=== PATIENT | female | born 1985 | race Caucasian/White ===

== ENCOUNTER 2016-04-13 20:09 | Emergency (ER) | payer OTHER ==
[~2016-04-13] VITALS: Ht 175.3 cm; Wt 96.5 kg
[~2016-04-13 20:09] MED LIST: AZIT250T94 PO
[2016-04-13 20:47] VITALS: Ht 175.3 cm; Wt 96.5 kg
--- NOTE | 2016-04-13 22:56 | RADRPT ---
PROCEDURE: XR Chest. CLINICAL INDICATION: Concern for foreign body. TECHNIQUE: Single frontal chest x-ray. COMPARISON: Chest radiograph 12/13/2015. FINDINGS: The cardiomediastinal silhouette is unremarkable. No pneumothorax, pleural effusion or consolidation is seen. No acute osseous abnormality is noted. No radiopaque foreign body is noted. IMPRESSION: 1. No radiopaque foreign body. 2. No acute cardiopulmonary abnormality. TECHNIQUE: An MRI of the brain was performed utilizing the following sequences: Sagittal and axial T1 weighted, axial T2 weighted, axial diffusion weighted with ADC mapping, axial SWAN, coronal GRE, sagittal and axial FLAIR. .Danielle Loving MD, MD Date Time Electronically viewed and signed by .Danielle Loving MD, on 04/13/2016 22:56 .N/
--- NOTE | 2016-04-13 22:58 | RADRPT ---
PROCEDURE: X-ray soft tissue neck CLINICAL INDICATION: Foreign body sensation. TECHNIQUE: AP and lateral x-ray of the soft tissues of the neck are available for review. COMPARISON: None available FINDINGS: The epiglottis is unremarkable. The airway is patent. No significant airway compromise is seen. No radiopaque foreign body is identified. No other abnormality is seen. The osseous structures are unre markable. IMPRESSION: 1. No radiopaque foreign body. RPTAT: HFN .Danielle Loving MD, Date Time Electronically viewed and signed by .Danielle Loving MD, on 04/13/2016 22:58 .N/
--- NOTE | 2016-04-13 23:24 | ERD ---
ER Documentation Chief Complaint Date/Time DATE: 04/13/16 TIME: 23:22 Chief Complaint Seed stuck on her throat HPI Patient is a 30-year-old female who presents to the emergency department with sensation of something being stuck in her throat. Patient states yesterday she was eating vegetables for dinner and that she is concerned that 1 of the joy seeds are stuck in her throat. Patient reports throat irritation. Patient denies any drooling, trismus or hyperextension of her neck. Patient states that she has vomited once today. She does speaking full sentences. Patient denies any throat swelling, lip swelling, chest pain or shortness of breath. Patient denies any fever, chills, nausea, vomiting, loss of consciousness. ROS All systems reviewed and are negative except as per history of present illness. Medications Home Meds Active Scripts Azithromycin* (Zithromax*) 250 Mg Tablet, 250 MG PO DAILY for 5 Days, #6 TAB Please dispense Z-merly Prov:SULEMA ROBISON PA-C 12/13/15 Allergies Allergies: Coded Allergies: No Known Allergy (Unverified , 12/13/15) PMhx/Soc Medical and Surgical Hx: pt denies Surgical Hx History of Surgery: No Anesthesia Reaction: No Hx Neurological Disorder: No Hx Respiratory Disorders: No Hx Cardiac Disorders: No Hx Psychiatric Problems: Yes (ANXIETY) Hx Miscellaneous Medical Probl: Yes (hypothyroidism) Hx Alcohol Use: No Hx Substance Use: No Hx Tobacco Use: No Smoking Status: Never smoker Physical Exam Vitals Vital Signs Date Time Temp Pulse Resp B/P Pulse Ox O2 Delivery O2 Flow Rate FiO2 04/13/16 20:47 98.3 91 18 130/73 100 Physical Exam GENERAL: Well-developed, well-nourished female. Appears in no acute distress. Speaking in full sentences HEAD: Normocephalic, atraumatic. No deformities or ecchymosis. EYE: Pupils equal, round, and reactive to light. EOMs intact. No conjunctival erythema. No eye discharge. ENT: External ear without any masses or tenderness. Auditory canals clear bilaterally. TM visualized bilaterally, non-erythematous, non-bulging. Nasal mucosa pink with no discharge. Oropharynx is pink without any tonsillar erythema or exudates. Right tonsil noted to be swollen however no uvula deviation or kissing tonsils are noted. (Patient states that this is normal finding for her.) Patient is able swallow her secretions without any difficulty. NECK: Supple. No meningismus. Normal ROM of the neck. LUNG: Clear to auscultation bilaterally. No rhonchi, wheezing, rales or coarse breath sounds. HEART: Regular rate and rhythm. No murmurs, rubs or gallops. BACK: No midline tenderness. EXTREMITES: Equal pulses bilaterally. No peripheral clubbing, cyanosis or edema. No unilateral leg swelling. NEUROLOGIC: Alert and oriented to person, place and time. Moving all four extremities. 5/5 strength in all extremities. Normal speech. Steady gait. SKIN: Normal color. Warm and dry. No rashes or lesions. Results 24 hrs Current Medications Medications (Trade) Dose Ordered Sig/Mohit Route PRN Reason Start Time Stop Time Status Last Admin Dose Admin Methylprednisolone Sodium Succinate (Solu-Medrol) 125 mg ONCE ONCE IM 04/13/16 23:30 04/13/16 23:30 DC Prednisone (Prednisone) 40 mg ONCE ONCE PO 04/13/16 23:30 04/13/16 23:30 DC Diphenhydramine HCl (Benadryl) 25 mg ONCE ONCE PO 04/13/16 23:30 04/13/16 23:30 DC Procedures/MDM ED COURSE: The patient was stable throughout ED course. I kept the patient and/or family informed of laboratory and diagnostic imaging results throughout the ED course. DIAGNOSTIC IMAGING: Read by radiologist. DIAGNOSTIC IMAGING REPORT Patient: JOSE A CUMMINGS : 1985 Age: 30 Sex: F MR #: [id number] [facility] #: [id number] DOS: 04/13/16 2214 Ordering MD: SULEMA ROBISON PA-C Location: [facility] Room/Bed: PROCEDURE: X-ray soft tissue neck CLINICAL INDICATION: Foreign body sensation. TECHNIQUE: AP and lateral x-ray of the soft tissues of the neck are available for review. COMPARISON: None available FINDINGS: The epiglottis is unremarkable. The airway is patent. No significant airway compromise is seen. No radiopaque foreign body is identified. No other abnormality is seen. The osseous structures are unremarkable. IMPRESSION: 1. No radiopaque foreign body. RPTAT: HFN .Danielle Loving MD, MD Date Time Electronically viewed and signed by .Danielle Loving MD, MD on 04/13/2016 22: 58 .N/ CC: SULEMA ROBISON PA-C DIAGNOSTIC IMAGING REPORT Patient: JOSE A CUMMINGS : 1985 Age: 30 Sex: F MR #: [id number] DOS: 04/13/16 0000 Ordering MD: SULEMA ROBISON PA-C Location: [facility] Room/Bed: PROCEDURE: XR Chest. CLINICAL INDICATION: Concern for foreign body. TECHNIQUE: Single frontal chest x-ray. COMPARISON: Chest radiograph 12/13/2015. FINDINGS: The cardiomediastinal silhouette is unremarkable. No pneumothorax, pleural effusion or consolidation is seen. No acute osseous abnormality is noted. No radiopaque foreign body is noted. IMPRESSION: 1. No radiopaque foreign body. 2. No acute cardiopulmonary abnormality. .Danielle Loving MD, MD Date Time Electronically viewed and signed by .Danielle Loving MD, MD on 04/13/2016 22: 56 .N/ CC: SULEMA ROBISON PA-C MEDICAL DECISION MAKING: Patient is a 30-year-old female who presents to the emergency department with throat irritation. Patient states that she feels that she has some vegetable seed stuck in her throat given that she ate vegetables yesterday vital signs were reviewed. Patient is afebrile. Patient was not hypoxic. Soft tissue of the x-ray of the neck was negative. Chest x-ray was negative. Patient is speaking in full sentences. Patient is able to swallow without any difficulty. Patient displayed no drooling or vomiting. At this time, I have a low suspicion for retained foreign body. At this time, the patient's presentation is consistent with throat irritation of unknown etiology. Low suspicion for viral pharyngitis, strep pharyngitis, mononucleosis, peritonsillar abscess, retropharyngeal abscess. DISCHARGE: At this time, patient is stable for discharge and outpatient management. I have instructed the patient to follow-up with his/her primary care physician in 1-2 days. I have discussed with the patient the possibility of needing to see an ENT specialist for further workup and imaging studies if symptoms persist. Patient may need an endoscopy to rule out any foreign bodies. I have instructed the patient to promptly return to the ER for any new or worsening symptoms including increased pain, fever, nausea, vomiting, weakness or LOC. The patient and/or family expressed understanding of and agreement with this plan. All questions were answered. Home care instructions were provided. Departure Diagnosis: Primary Impression: Throat irritation Condition: Stable Patient Instructions: When You Have a Sore Throat Referrals: [facility] YOU HAVE RECEIVED A MEDICAL SCREENING EXAM AND THE RESULTS INDICATE THAT YOU DO NOT HAVE A CONDITION THAT REQUIRES URGENT TREATMENT IN THE EMERGENCY DEPARTMENT. FURTHER EVALUATION AND TREATMENT OF YOUR CONDITION CAN WAIT UNTIL YOU ARE SEEN IN YOUR DOCTORS OFFICE WITHIN THE NEXT 1-2 DAYS. IT IS YOUR RESPONSIBILITY TO MAKE AN APPOINTMENT FOR FOLOW-UP CARE. IF YOU HAVE A PRIMARY DOCTOR --you should call your primary doctor and schedule an appointment IF YOU DO NOT HAVE A PRIMARY DOCTOR YOU CAN CALL OUR PHYSICIAN REFERRAL HOTLINE AT IF YOU CAN NOT AFFORD TO SEE A PHYSICIAN YOU CAN CHOSE FROM THE FOLLOWING [facility] [address] [facility]. [facility] [address] [facility]. [facility] [address] [facility]. [facility] [address] [facility]. [facility] [address] [facility]. [facility]. [address] [facility] YOU HAVE RECEIVED A MEDICAL SCREENING EXAM AND THE RESULTS INDICATE THAT YOU DO NOT HAVE A CONDITION THAT REQUIRES URGENT TREATMENT IN THE EMERGENCY DEPARTMENT. FURTHER EVALUATION AND TREATMENT OF YOUR CONDITION CAN WAIT UNTIL YOU ARE SEEN IN YOUR DOCTORS OFFICE WITHIN THE NEXT 1-2 DAYS. IT IS YOUR RESPONSIBILITY TO MAKE AN APPOINTMENT FOR FOLOW-UP CARE. IF YOU HAVE A PRIMARY DOCTOR --you should call your primary doctor and schedule and appointment IF YOU DO NOT HAVE A PRIMARY DOCTOR YOU CAN CALL OUR PHYSICIAN REFERRAL HOTLINE AT . IF YOU CAN NOT AFFORD TO SEE A PHYSICIAN YOU CAN CHOSE FROM THE FOLLOWING [facility] INSTITUTIONS: [facility] [address] [place] [address] [facility] [address] [place] [address] [facility] [address] [place] [address] Additional Instructions: At this time your imaging was negative for foreign body. Patient was advised that she may need to see an ENT specialist for possible endoscopy to rule out any retained foreign bodies if she continues to have symptoms. See referral list. Patient advised to return emergency department immediately for any shortness of breath, chest tightness, tongue swelling, guilty breathing or loss consciousness. SULEMA ROBISON PA-C Apr 13, 2016 23:24
[2016-04-13] MEDS ORDERED: predniSONE 20 MG TAB PO ONE (23:30)
[2016-04-13] MEDS ORDERED: METHYLPREDNISOLONE 125 MG INJ IM ONE (23:30)
[2016-04-13] MEDS ORDERED: DIPHENHYDRAMINE 25 MG CAP PO ONE (23:30)
== END 2016-04-13 23:39 | disposition home or self-care (01) ==
LOC: FTE 20:09
DX: R09.89 Other specified symptoms and signs involving the circulatory and respiratory systems (principal); E03.9 Hypothyroidism, unspecified
CPT/HCPCS: 70360; 71010